=== PATIENT | female | born 1985 | race Caucasian/White ===

== ENCOUNTER 2017-05-06 09:08 | Emergency (ER) | payer OTHER ==
[2017-05-06 09:20] VITALS: BP 149/91; PULSE 84; TEMP 98.4; BMI 39.1
--- NOTE | 2017-05-06 11:07 | PDOC ---
History of Present Illness - General Chief Complaint: Cold Symptoms Stated Complaint: HEADACHE, SORE THROAT Time Seen by Provider: 05/06/17 10:33 History Source: Patient Exam Limitations: No Limitations - History of Present Illness Initial Comments: 05/06/17 11:03 31 yr female with sinus tenderness and congestion left side for 4 days. Pt has nasal discharge yellow thick with left ear pain. no fever or chills no medical history or allergies. Severity: reports: mild Past History - Past Medical History Allergies/Adverse Reactions: Allergies Allergy/AdvReac Type Severity Reaction Status Date / Time No Known Allergies Allergy Verified 05/06/17 09:17 Home Medications: Ambulatory Orders Amoxicillin/Potassium Clav [Augmentin 875-125 Tablet] 1 each PO BID #20 tablet 05/06/17 Fluticasone Prop 0.05% Nasal [Flonase -] 1 - 2 spray NS DAILY #1 spray.pump 11/10 Anemia: No Asthma: No Cancer: No Cardiac Disorders: No CVA: No COPD: No CHF: No Dementia: No Diabetes: No GI Disorders: No Disorders: Yes (KIDNEY STONE) HTN: Yes (border line) Hypercholesterolemia: No Liver Disease: Yes (FATTY LIVER;HEPATO MEGALY) Seizures: No Thyroid Disease: No - Psycho/Social/Smoking Cessation Hx Anxiety: No Suicidal Ideation: No Smoking History: Never smoked Have you smoked in the past 12 months: No Information on smoking cessation initiated: No Hx Alcohol Use: No Drug/Substance Use Hx: No Substance Use Type: None Hx Substance Use Treatment: No *Physical Exam - Vital Signs Last Vital Signs Temp Pulse Resp BP Pulse Ox 98.4 F 84 18 149/91 100 05/06/17 09:18 05/06/17 09:18 05/06/17 09:18 05/06/17 09:18 05/06/17 09:18 - Physical Exam General Appearance: Yes: Nourished, Appropriately Dressed HEENT: positive: EOMI, MARIAM, TMs Normal, Nasal Congestion, Other (tender to left maxilary sinus ) Neck: positive: Supple. negative: Tender Respiratory/Chest: positive: Lungs Clear, Normal Breath Sounds. negative: Chest Tender Cardiovascular: positive: Regular Rhythm, Regular Rate Gastrointestinal/Abdominal: positive: Normal Bowel Sounds, Soft Musculoskeletal: positive: Normal Inspection Extremity: positive: Normal Capillary Refill, Normal Inspection, Normal Range of Motion Integumentary: positive: Normal Color, Dry, Warm Neurologic: positive: Fully Oriented, Alert, Normal Mood/Affect, Normal Response , Motor Strength 5/5 Medical Decision Making - Medical Decision Making 05/06/17 11:04 cc: sinus headache tenderness nasal drainage non toxic no fever will treat for acute sinusitus pt agrees with plan all questions asked and answered at discharge. 05/06/17 11:25 *DC/Admit/Observation/Transfer Diagnosis at time of Disposition: Sinusitis Qualifiers: Sinusitis location: maxillary Chronicity: acute Recurrence: non-recurrent Qualified Code(s): J01.00 - Acute maxillary sinusitis, unspecified - Discharge Dispostion Disposition: HOME Condition at time of disposition: Good - Prescriptions Prescriptions: Amoxicillin/Potassium Clav [Augmentin 875-125 Tablet] 1 each PO BID #20 tablet Fluticasone Prop 0.05% Nasal [Flonase -] 1 - 2 spray NS DAILY #1 spray.pump - Referrals Referrals: Daniel Champagne MD [Primary Care Provider] - Aj Abebe MD [Staff Physician] - - Patient Instructions Additional Instructions: take the antibioitcs Augmentin as directed use the nasal spray as directed continue to take advil for pain and headache cool compresses to the face can help with pain follow with ENT if symptoms worsen or do not improve
== END 2017-05-06 11:37 | disposition home or self-care (01) ==
LOC: JERFT 09:08
DX: J01.00 Acute maxillary sinusitis, unspecified (principal); Z87.442 Personal history of urinary calculi; K76.0 Fatty (change of) liver, not elsewhere classified
CPT/HCPCS: 99281-25

== ENCOUNTER 2017-12-22 17:40 | Emergency (ER) | payer OTHER ==
[2017-12-22 17:53] VITALS: BP 137/75; PULSE 98; TEMP 97.2; BMI 38.7
--- NOTE | 2017-12-22 19:46 | PDOC ---
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 Today, the patient was driving and noticed sudden onset shortness of breath and LUE pain w/ associated numbness radiating down the L arm. SHe denied CP during the episode, no prior episodes, was not exerting herselt, was not anxious at the time. The pain is mostly in the suprascapular region, with associated numbness down L arm. In retrospect she also has noted a couple weeks of intermittent L sided headache/fullness w/ associated eye and ear pain. These headaches happen several times a day, only on L side, at times worse in morning, worse w/ bending down. Denies other focal neurological symptoms Past History - Past Medical History Allergies/Adverse Reactions: Allergies Allergy/AdvReac Type Severity Reaction Status Date / Time No Known Allergies Allergy Verified 12/22/17 17:53 Home Medications: Ambulatory Orders Dicyclomine HCl [Bentyl -] 10 mg PO TID 12/22/17 Ibuprofen [Motrin -] 600 mg PO TID PRN #21 tablet 12/22/17 Ursodiol 500 mg PO TID 12/22/17 Anemia: No Asthma: No Cancer: No Cardiac Disorders: No CVA: No COPD: No CHF: No Dementia: No Diabetes: No GI Disorders: No Disorders: Yes (KIDNEY STONE) HTN: Yes (meds started 12/19/17) Hypercholesterolemia: No Liver Disease: Yes (FATTY LIVER;HEPATO MEGALY) Seizures: No Thyroid Disease: No - Suicide/Smoking/Psychosocial Hx Smoking History: Never smoked Have you smoked in the past 12 months: No Hx Alcohol Use: No Drug/Substance Use Hx: No Substance Use Type: None Hx Substance Use Treatment: No *Physical Exam - Vital Signs Last Vital Signs Temp Pulse Resp BP Pulse Ox 97.2 F L 98 H 18 137/75 100 12/22/17 17:48 12/22/17 17:48 12/22/17 17:48 12/22/17 17:48 12/22/17 17:48 - Physical Exam Comments: GEN: AAOx3, NAD, Lying comfortably HEENT: PERRLA, EOMi, Tympanic membranes intact, no cervical LAD CV: S1, S2, RRR LUNG: CTABL ABD: Obese, soft, NT, ND MSK: 5/5 strength, no sensation deficits NEURO: Full head to toe neuro exam shows no deficits. CN 2-12 intact ED Treatment Course - LABORATORY CBC & Chemistry Diagram: 12/22/17 19:50 12/22/17 19:50 - RADIOLOGY Radiology Studies Ordered: Category Date Time Status HEAD CT WITHOUT CONTRAST [CT] Stat CT Scan 12/22/17 19:35 Ordered CHEST PA & LAT [RAD] Stat Radiology 12/22/17 19:35 Ordered Medical Decision Making - Medical Decision Making 32yo obese F with PMHx of PBC presents with an episode of SOB with residual LUE numbness. In retrospect has had episodes of L sided headaches, eye pain, ear pain.The episode of SOB and LUE numbness could be unrelated or related to the headaches. DDx: Atypical ACS, Cluster headache, sinus headache, idiopathic intracranial hypertension, intracranial mass -- CBC, CMP -- Cardiac profile, EKG -- Urine -- CXR and CT HEad -- Sumatriptan SQ for now, will assess for relief 12/22/17 21:31 Cardiac profile, EKG, CXR all wnl. Still endorses headache after triptan, unlikely migraine or cluster. Head CT normal but has incidental maxillary sinus congestion on opposite side. Will try motrin. If headache improves, will consider sinus headache and dispo home. *DC/Admit/Observation/Transfer Diagnosis at time of Disposition: Sinus headache - Discharge Dispostion Disposition: HOME Admit: No - Prescriptions Prescriptions: Ibuprofen [Motrin -] 600 mg PO TID PRN #21 tablet PRN Reason: Headache - Referrals Referrals: Daniel Champagne MD [Primary Care Provider] - 1 week - Patient Instructions Printed Discharge Instructions: DI for Sinus Headache - Post Discharge Activity
[2017-12-22] MEDS ORDERED: SUMATRIPTAN SUCCINATE 6 MG/0.5 ML VIAL SQ ONE (19:55)
[2017-12-22 19:57] LABS: BASO % 0.6 % (0-2.0); EOS % 1.9 % (0-4.5); HEMATOCRIT 40.2 % (32.4-45.2); HEMOGLOBIN 13.5 GM/dL (10.7-15.3); LYMPH % 37.3 % (8-40); MCH 30.3 pg (25.7-33.7); MCHC 33.5 g/dl (32.0-36.0); MEAN CELL VOLUME 90.4 fl (80-96); MEAN PLT VOLUME 10.1 fl (7.5-11.1); NEUT % 55.2 % (42.8-82.8); PLATELET COUNT 176 K/MM3 (134-434); RBC 4.45 M/mm3 (3.60-5.2); RDW 13.4 % (11.6-15.6); WHITE BLOOD COUNT 9.6 K/mm3 (4.0-10.0)
[2017-12-22] MEDS ORDERED: SUMATRIPTAN SUCCINATE 6 MG/0.5 ML VIAL ONE (20:02)
[2017-12-22 20:20] LABS: ANION GAP 7 (8-16); BILIRUBIN,TOTAL 0.5 mg/dL (0.2-1.0); BLOOD UREA NITROGEN 10 mg/dL (7-18); CALCIUM 9.1 mg/dL (8.5-10.1); CHLORIDE 105 mmol/L (98-107); CO2 28 mmol/L (21-32); CREATININE 0.7 mg/dL (0.55-1.02); GLUCOSE,RANDOM 85 mg/dL (74-106); POTASSIUM 3.8 mmol/L (3.5-5.1); SGOT/AST 15 U/L (15-37); SGPT/ALT 27 U/L (12-78); SODIUM 140 mmol/L (136-145); TOT PROT 7.7 g/dl (6.4-8.2)
[2017-12-22 20:23] LABS: ALK PHOS 59 U/L (45-117)
--- NOTE | 2017-12-22 20:55 | PDOC ---
Attending Attestation - Resident Resident Name: Umair Fitzgerald - ED Attending Attestation I have performed the following: I have examined & evaluated the patient, The case was reviewed & discussed with the resident, I agree w/resident's findings & plan - HPI HPI: 12/22/17 20:53 Pt comes with head ache CP HTN morbid obesity. Multiple complaints. Vitals normal, and pt appears well. - Physicial Exam PE: 12/22/17 20:54 Agree with exam of resident - Medical Decision Making 12/22/17 20:54 Labs are normal CXR pending Head CT normal; pt has a nodule in the right maxillary sinus. Pt will be reassessed after treatment in the ER. 12/22/17 22:10 Patient Name: RUSTY MAYERS THIS IS A PRELIMINARY REPORT FROM [facility] DATE OF SERVICE: 2017-12-22 20:29:52 IMAGES: 139 EXAM: CT HEAD WITHOUT IV CONTRAST TECHNIQUE: Axial images from the skull base to the vertex. Bone and soft tissue windows were reviewed.Multi-planar reconstructions from the axial data set: Yes REASON FOR EXAM: Headache COMPARISON: None. FINDINGS: The brain parenchymal architecture appears normal, with preservation of the friedman -white differentiation. There is no acute intracranial hemorrhage, mass effect or midline shift. No abnormal intra-axial or extra-axial fluid collection is seen. The periventricular white matter is unremarkable. The ventricles and basilar cisterns are maintained. The bones of the calvarium and imaged skull base demonstrate no acute abnormality. The imaged paranasal sinuses and mastoid air cells : remarkable for: Right maxillary mucous retention cyst or polyp. IMPRESSION: Non acute THIS DOCUMENT HAS BEEN ELECTRONICALLY SIGNED
[2017-12-22] MEDS ORDERED: IBUPROFEN 600 MG TABLET (FP) PO ONE ×2 (21:23→21:30)
--- NOTE | 2017-12-23 13:03 | EKG ---
Test Reason : Blood Pressure : / mmHG Vent. Rate : 076 BPM Atrial Rate : 076 BPM P-R Int : 186 ms QRS Dur : 098 ms QT Int : 392 ms P-R-T Axes : 052 021 029 degrees QTc Int : 441 ms NORMAL SINUS RHYTHM WITH SINUS ARRHYTHMIA NORMAL ECG WHEN COMPARED WITH ECG OF 09-AUG-2016 15:55, NO SIGNIFICANT CHANGE WAS FOUND Confirmed by ERMA CHILDS MD ([id number]) on 12/23/2017 1:02:48 PM Referred By: Confirmed By:ERMA CHILDS MD
== END 2017-12-22 22:49 | disposition home or self-care (01) ==
LOC: JER 17:40
PROC: 3E013GC Introduction of Other Therapeutic Substance into Subcutaneous Tissue, Percutaneous Approach (ICD-10-PCS; principal; 2017-12-22)
DX: J01.00 Acute maxillary sinusitis, unspecified (principal)
CPT/HCPCS: 36415; 70450-TC; 71046-TC; 80053; 82550; 84484; 84703; 85025; 93005; 93010; 96372; 99282-25

== ENCOUNTER 2018-07-18 11:52 | Inpatient (IN) | payer OTHER ==
--- NOTE | 2018-07-18 14:00 | HP ---
Past Medical History - Primary Care Physician PCP:: Lupe Gray - Admission Chief Complaint: Oligohydramios. IUP at 32.4 by dates by usg. pt sent in by [facility] for NST due to ULICES 4 History of Present Illness: 33 yo EDC 12/09/17 EGA 32.4 week with hx of Chronic HTN, liver fibrosis & obesity admited due to ULICES of 4 seen today by [facility] and will give steriods and antibiotics admit reevaluate on saturday. Pt with Hx of possible PPOM a few days ago History Source: Patient - Past Medical History Cardiovascular: Yes: HTN Gastrointestinal: Yes: Other (Liver fibrosis) ...: 2 ...Para: 1 ...Term: 1 ...LMP: 11/20/17 ... Weeks Gestation by Dates: 34.2 ...EDC by Dates: 08/27/18 ...EDC by Sono: 09/08/18 - Past Surgical History Past Surgical History: Yes: None Hx Myomectomy: No Hx Transabdominal Cerclage: No - Smoking History Smoking history: Never smoked Have you smoked in the past 12 months: No - Alcohol/Substance Use Hx Alcohol Use: No History of Substance Use: reports: None - Social History Usual Living Arrangement: Yes: With Spouse History of Recent Travel: No Home Medications - Allergies Allergies/Adverse Reactions: Allergies Allergy/AdvReac Type Severity Reaction Status Date / Time No Known Allergies Allergy Verified 12/22/17 17:53 - Home Medications Home Medications: Ambulatory Orders Dicyclomine HCl [Bentyl -] 10 mg PO TID 12/22/17 Ibuprofen [Motrin -] 600 mg PO TID PRN #21 tablet 12/22/17 Ursodiol 500 mg PO TID 12/22/17 Review of Systems - Review of Systems Constitutional: reports: No Symptoms Eyes: reports: No Symptoms HENT: reports: No Symptoms Neck: reports: No Symptoms Cardiovascular: reports: No Symptoms Respiratory: reports: No Symptoms Gastrointestinal: reports: No Symptoms Genitourinary: reports: No Symptoms Breasts: reports: No Symptoms Reported Musculoskeletal: reports: No Symptoms Integumentary: reports: No Symptoms Neurological: reports: No Symptoms Endocrine: reports: No Symptoms Hematology/Lymphatic: reports: No Symptoms Psychiatric: reports: No Symptoms Physical Exam - Maternity Constitutional: Yes: Well Nourished, Obese Neck: Yes: WNL Cardiovascular: Yes: WNL, Regular Rate and Rhythm Lungs: Clear to auscultation Breast(s): Yes: WNL - Abdominal Exam/OB Fundal Height: 32 Number of Fetuses: Single Presentation: Vertex Contractions: No Category: I Decelerations: None - Vaginal Exam/OB Speculum Exam: Yes Dilatation (cm): closed Effacement (%): long Nitrazine Test: Negative Presentation: Vertex/Position - Physical Exam Musculoskeletal: Yes: WNL Extremities: Yes: WNL Edema: No Psychiatric: Yes: WNL, Alert, Oriented Hemorrhage Risk Assessment - Risk Factors Risk Score: 1 Risk Level: Medium Risk Problem List - Problems (1) Oligohydramnios antepartum Code(s): O41.00X0 - OLIGOHYDRAMNIOS, UNSP TRIMESTER, NOT APPLICABLE OR UNSP Assessment/Plan IUP at 32.6 weeks by dates OLigo r/o PPROM - nitro neg Plan admit to LD steroids antibiotics daily NSTs repeat Usg on Saturday Deliver at 34 weekd if stable at 4cm Labs Lab Results: CBC, BMP 07/18/18 14:38 07/18/18 14:38
[2018-07-18] MEDS ORDERED: BETAMET ACET/BETAMET NA PH 30 MG/5 ML VIAL IM ONE (14:08)
[2018-07-18] MEDS: ELECTROLYTE-148 SOLN 1,000 ML IV SCH ×2 (15:10→22:26)
[2018-07-18 15:14] LABS: INR 0.99 (0.83-1.09); PROTHROMBIN TIME (PATIENT) 11.2 SEC (9.7-13.0)
[2018-07-18 15:17] LABS: ACTIVATED PTT 25.9 SECONDS (25.2-36.5)
[2018-07-18 15:27] LABS: ANION GAP 7 MMOL/L (8-16); BLOOD UREA NITROGEN 7 mg/dL (7-18); CALCIUM 8.8 mg/dL (8.5-10.1); CHLORIDE 106 mmol/L (98-107); CO2 27 mmol/L (21-32); CREATININE 0.4 mg/dL (0.55-1.02); GLUCOSE,RANDOM 88 mg/dL (74-106); POTASSIUM 3.7 mmol/L (3.5-5.1); SODIUM 140 mmol/L (136-145)
[2018-07-18 15:28] LABS: BASO % 0.1 % (0-2.0); EOS % 1.1 % (0-4.5); HEMATOCRIT 34.8 % (32.4-45.2); HEMOGLOBIN 11.9 GM/dL (10.7-15.3); LYMPH % 27.9 % (8-40); MCH 30.8 pg (25.7-33.7); MCHC 34.2 g/dl (32.0-36.0); MEAN PLT VOLUME 10.2 fl (7.5-11.1); MONO % 5.6 % (3.8-10.2); NEUT % 65.3 % (42.8-82.8); PLATELET COUNT 153 K/MM3 (134-434); RBC 3.87 M/mm3 (3.60-5.2); RDW 14.4 % (11.6-15.6); WHITE BLOOD COUNT 6.9 K/mm3 (4.0-10.0)
[2018-07-18] MEDS ORDERED: AMPICILLIN SODIUM 2 GM VIAL ONE ×2 (15:29→21:14)
[2018-07-18] MEDS: AMPICILLIN - 2 GM in SODIUM CHLORIDE 100 ML IVPB SCH ×2 (15:35→21:33)
[2018-07-19] MEDS: AMPICILLIN - 2 GM in SODIUM CHLORIDE 100 ML IVPB SCH ×2 (02:34→09:37)
[2018-07-19 08:46] LABS: BASO % 0.1 % (0-2.0); EOS % 0.1 % (0-4.5); HEMATOCRIT 32.7 % (32.4-45.2); HEMOGLOBIN 10.9 GM/dL (10.7-15.3); LYMPH % 16.3 % (8-40); MCH 30.3 pg (25.7-33.7); MCHC 33.5 g/dl (32.0-36.0); MEAN CELL VOLUME 90.5 fl (80-96); MEAN PLT VOLUME 10.1 fl (7.5-11.1); MONO % 4.1 % (3.8-10.2); NEUT % 79.4 % (42.8-82.8); PLATELET COUNT 137 K/MM3 (134-434); RBC 3.61 M/mm3 (3.60-5.2); RDW 14.2 % (11.6-15.6); WHITE BLOOD COUNT 8.8 K/mm3 (4.0-10.0)
--- NOTE | 2018-07-19 08:56 | PN ---
Ante-Partal Exam - Subjective Subjective: Pt doing well Vital Signs: Vital Signs Temperature 98.2 F 07/19/18 08:35 Pulse Rate 87 07/19/18 08:35 Respiratory Rate 20 07/19/18 08:35 Blood Pressure 123/79 07/19/18 08:35 O2 Sat by Pulse Oximetry (%) - Contractions Contractions: No - Exam during Labor Category: I Monitor Decelerations: None Presentation: Vertex - Intrapartum Hemorrhage Risk Risk Score: 0 Risk Level: Low Risk - Assessment/Plan Assessment/Plan: IUP at 32.5 weeks OLIgo ?PPROM nitrazine neg Cat 1 Plan continue observe azithromycin 250 after amp deliver at 34 week BPP on Saturday
[2018-07-19] MEDS ORDERED: AMPICILLIN SODIUM 2 GM VIAL ONE (09:26)
[2018-07-19] MEDS: DOCUSATE SODIUM 100 MG CAPSULE (FP) PO SCH ×2 (09:37→21:25)
[2018-07-19] MEDS ORDERED: BETAMET ACET/BETAMET NA PH 30 MG/5 ML VIAL IM ONE (14:00)
[2018-07-19] MEDS: AZITHROMYCIN 250 MG TABLET PO SCH (14:27)
[2018-07-19] MEDS: ELECTROLYTE-148 SOLN 1,000 ML IV SCH (21:17)
[2018-07-20 06:39] LABS: HBsAG SCREEN Negative (Negative)
[2018-07-20] MEDS: DOCUSATE SODIUM 100 MG CAPSULE (FP) PO SCH ×2 (09:53→21:19)
[2018-07-20] MEDS: AZITHROMYCIN 250 MG TABLET PO SCH (14:04)
[2018-07-20] MEDS: ELECTROLYTE-148 SOLN 1,000 ML IV SCH (21:18)
[2018-07-21 08:53] LABS: BASO % 0.4 % (0-2.0); EOS % 0.5 % (0-4.5); HEMATOCRIT 35.5 % (32.4-45.2); HEMOGLOBIN 11.7 GM/dL (10.7-15.3); LYMPH % 26.7 % (8-40); MCH 29.8 pg (25.7-33.7); MCHC 32.9 g/dl (32.0-36.0); MEAN CELL VOLUME 90.4 fl (80-96); MEAN PLT VOLUME 9.5 fl (7.5-11.1); MONO % 3.8 % (3.8-10.2); NEUT % 68.6 % (42.8-82.8); PLATELET COUNT 153 K/MM3 (134-434); RBC 3.93 M/mm3 (3.60-5.2); RDW 14.8 % (11.6-15.6); WHITE BLOOD COUNT 9.9 K/mm3 (4.0-10.0)
--- NOTE | 2018-07-21 09:46 | PN ---
Progress Note (SOAP) - Subjective Chief Complaint: Pt doing well sp BPP awaiting results - Current Medications Current Medications: Active Medications Azithromycin (Zithromax -) 250 mg PO DAILY@1400 [facility] Last Admin: 07/20/18 14:04 Dose: 250 mg Docusate Sodium (Colace -) 100 mg PO BID [facility] Last Admin: 07/20/18 21:19 Dose: 100 mg Parenteral Electrolytes (Plasma-Lyte 148 -) 1,000 mls @ 125 mls/hr IV ASDIR [facility] Last Admin: 07/20/18 21:18 Dose: Not Given - Objective Vital Signs: Vital Signs Temperature 98.1 F 07/21/18 09:00 Pulse Rate 85 07/21/18 09:00 Respiratory Rate 18 07/21/18 09:00 Blood Pressure 117/59 07/21/18 09:00 O2 Sat by Pulse Oximetry (%) Constitutional: Yes: Well Nourished, No Distress Cardiovascular: Yes: WNL, Regular Rate and Rhythm Respiratory: Yes: WNL Gastrointestinal: Yes: WNL Breast(s): Yes: WNL Musculoskeletal: Yes: WNL Extremities: Yes: WNL Peripheral Pulses WNL: No Edema: No Labs Lab Results: CBC, BMP 07/21/18 08:45 07/18/18 14:38 Problem List - Problems (1) Oligohydramnios antepartum Code(s): O41.00X0 - OLIGOHYDRAMNIOS, UNSP TRIMESTER, NOT APPLICABLE OR UNSP Assessment/Plan IUP at 33.1 weeks by dates OLigo r/o PPROM - nitro neg Plan DC home if stable or if ULICES improved deliver if worse
[2018-07-21] MEDS ORDERED: FLUCONAZOLE 150 MG TABLET PO ONE (10:00)
[2018-07-21] MEDS: DOCUSATE SODIUM 100 MG CAPSULE (FP) PO SCH (10:14)
[2018-07-21] MEDS: AZITHROMYCIN 250 MG TABLET PO SCH (14:07)
[2018-07-21 18:03] VITALS: BP 120/75; PULSE 88; TEMP 98.1
[2018-07-22 00:12] LABS: RUBELLA ANTIBODY,IGM <20.0 AU/mL (0.0-19.9); RUBELLA IgG ANTIBODY 6.12 index (Immune >0.99)
== END 2018-07-21 18:40 | disposition home or self-care (01) | DRG 566 ==
LOC: JDEL 11:52 → JLDR 14:03 → J3W 22:30
PROVIDERS: ADMIT Obstetrics & Gynecology; ATTEND Obstetrics & Gynecology
DX: O41.03X0 Oligohydramnios, third trimester, not applicable or unspecified (principal); Z3A.33 33 weeks gestation of pregnancy
CPT/HCPCS: 36415; 76819-TC; 80048; 85025; 85610; 85730; 86593; 86762; 86850; 86900; 86901; 87070; 87077; 87081; 87205; 87340; 96372

== ENCOUNTER 2018-08-30 16:50 | Inpatient (IN) | payer OTHER ==
[2018-08-30] MEDS ORDERED: AMPICILLIN - 2 GM in SODIUM CHLORIDE 100 ML IVPB ONE (17:30)
[2018-08-30] MEDS ORDERED: OXYTOCIN 20 UNITS in 0.9% NS 20 UNIT/1,000 ML INFUS.BAG IV ONE (18:04)
[2018-08-30] MEDS: OXYTOCIN 20 UNITS in 0.9% NS 20 UNIT/1,000 ML INFUS.BAG IV SCH ×2 (18:15→22:08)
--- NOTE | 2018-08-30 18:23 | HP ---
Past Medical History - Admission Chief Complaint: Labor, contractions, ROM History of Present Illness: Contractions starting at 1545, ROM once arrived to hospital. Pt with before I entered the room at 1805. History Source: Patient, Medical Record - Past Medical History Cardiovascular: Yes: HTN (chronic, no meds) Gastrointestinal: Yes: Other (liver fibrosis, on ursodiol, followed with MFM throughout ) Infectious Disease: No: HIV, MRSA, STD's Psych: No: Anxiety, Bipolar, Depression - Past Surgical History Past Surgical History: Yes: None Hx Myomectomy: No Hx Transabdominal Cerclage: No - Smoking History Smoking history: Never smoked Have you smoked in the past 12 months: No - Alcohol/Substance Use Hx Alcohol Use: No History of Substance Use: reports: None - Social History History of Recent Travel: No Home Medications - Allergies Allergies/Adverse Reactions: Allergies Allergy/AdvReac Type Severity Reaction Status Date / Time No Known Allergies Allergy Verified 08/29/18 11:04 - Home Medications Home Medications: Ambulatory Orders Ursodiol 500 mg PO TID 12/22/17 Pnv No.95/Ferrous Fum/Folic AC [ Vitamin Tablet] 1 each PO DAILY Review of Systems - Review of Systems Constitutional: reports: No Symptoms Cardiovascular: reports: No Symptoms Respiratory: reports: No Symptoms Gastrointestinal: reports: No Symptoms Genitourinary: reports: Vaginal Bleeding (s/p normal ) Breasts: reports: No Symptoms Reported Psychiatric: reports: No Symptoms Physical Exam - Maternity Constitutional: Yes: Well Nourished, No Distress, Calm Eyes: Yes: Conjunctiva Clear, EOM Intact HENT: Yes: Atraumatic, Normocephalic Neck: Yes: Supple Cardiovascular: Yes: Regular Rate and Rhythm Lungs: Clear to auscultation - Abdominal Exam/OB Contractions: No - Vaginal Exam/OB Vaginal Bleediing: Yes (s/p normal ) - Physical Exam Extremities: Yes: WNL Psychiatric: Yes: Alert, Oriented Hemorrhage Risk Assessment - Risk Factors Medium Risk Factors: Yes: None High Risk Factors: Yes: None Risk Score: 1 Risk Level: Medium Risk Problem List - Problems (1) Liver fibrosis Code(s): K74.0 - HEPATIC FIBROSIS (2) Hypertension affecting Code(s): O16.9 - UNSPECIFIED MATERNAL HYPERTENSION, UNSPECIFIED TRIMESTER Assessment/Plan 33 y/o s/p normal upon my arrival to room Apgars 08/03, baby doing well upon my arrival placenta delivered without difficulty, spontaneous and in tact, 3VC pitocin regular diet routine post care
[2018-08-30] MEDS ORDERED: IBUPROFEN 600 MG TABLET (FP) PO PRN (18:24)
[2018-08-30] MEDS ORDERED: METHYLERGONOVINE MALEATE 0.2 MG/1 ML AMP IM PRN (18:24)
[2018-08-30] MEDS ORDERED: BENZOCAINE 20% 57 GM BOTTLE TP PRN (18:24)
[2018-08-30] MEDS ORDERED: ACETAMINOPHEN 325 MG TABLET (FP) PO PRN (18:24)
[2018-08-30] MEDS ORDERED: WITCH HAZEL 50% (TUCKS) 40 PAD/JAR PAD TP PRN (18:24)
[2018-08-30] MEDS ORDERED: BENZOCAINE 28 GM HEMORRHOIDAL OINTMENT TP PRN (18:24)
[2018-08-30] MEDS ORDERED: BISACODYL 10 MG SUPP.RECT RC PRN (18:24)
--- NOTE | 2018-08-30 18:25 | PN ---
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
[2018-08-30 18:30] VITALS: BMI 39.7
[2018-08-30] MEDS ORDERED: TUBERCULIN PPD 5 TU/0.1ML SYRINGE (IN PATIENT USE ONLY) ID ONE ×2 (18:34→18:45)
[2018-08-30 19:10] LABS: EOS % 0.1 % (0-4.5); HEMATOCRIT 36.8 % (32.4-45.2); HEMOGLOBIN 12.4 GM/dL (10.7-15.3); LYMPH % 7.3 % (8-40); MCH 30.4 pg (25.7-33.7); MCHC 33.6 g/dl (32.0-36.0); MEAN CELL VOLUME 90.4 fl (80-96); MEAN PLT VOLUME 10.8 fl (7.5-11.1); MONO % 3.8 % (3.8-10.2); NEUT % 88.8 % (42.8-82.8); PLATELET COUNT 163 K/MM3 (134-434); RBC 4.07 M/mm3 (3.60-5.2); WHITE BLOOD COUNT 10.9 K/mm3 (4.0-10.0)
[2018-08-30 19:22] LABS: INR 0.97 (0.83-1.09); PROTHROMBIN TIME (PATIENT) 11.4 SEC (9.7-13.0)
[2018-08-30 19:25] LABS: ACTIVATED PTT 23.4 SECONDS (25.2-36.5)
[2018-08-30 19:40] LABS: ANION GAP 7 MMOL/L (8-16); BLOOD UREA NITROGEN 5 mg/dL (7-18); CHLORIDE 108 mmol/L (98-107); CO2 24 mmol/L (21-32); CREATININE 0.4 mg/dL (0.55-1.3); GLUCOSE,RANDOM 91 mg/dL (74-106); POTASSIUM 4.1 mmol/L (3.5-5.1); SODIUM 139 mmol/L (136-145)
[2018-08-30] MEDS ORDERED: AMPICILLIN - 1 GM in SODIUM CHLORIDE 100 ML IVPB SCH (21:30)
[2018-08-30] MEDS ORDERED: URSODIOL 500 MG PO SCH (22:00)
--- NOTE | 2018-08-31 06:55 | PN ---
Post Progress Note Type of Delivery: Vital Signs: Vital Signs Temperature 98.6 F 08/31/18 05:19 Pulse Rate 82 08/31/18 05:19 Respiratory Rate 18 08/31/18 05:19 Blood Pressure 118/63 08/31/18 05:19 O2 Sat by Pulse Oximetry (%) 99 08/30/18 19:00 Uterus: Yes: Fundus Firm Abdomen/GI: Yes: Abdomen soft Lochia: Yes: Rubra Lochia, amount: Small Extremities: Yes: Calves non-tender Perineum: Yes: Intact Activity: Ambulating - Labs Labs: CBC WBC 10.9 K/mm3 (4.0-10.0) H 08/30/18 18:55 RBC 4.07 M/mm3 (3.60-5.2) 08/30/18 18:55 Hgb 12.4 GM/dL (10.7-15.3) 08/30/18 18:55 Hct 36.8 % (32.4-45.2) 08/30/18 18:55 MCV 90.4 fl (80-96) 08/30/18 18:55 MCH 30.4 pg (25.7-33.7) 08/30/18 18:55 MCHC 33.6 g/dl (32.0-36.0) 08/30/18 18:55 RDW 15.0 % (11.6-15.6) 08/30/18 18:55 Plt Count 163 K/MM3 (134-434) 08/30/18 18:55 MPV 10.8 fl (7.5-11.1) D 08/30/18 18:55 Absolute Neuts (auto) 9.7 K/mm3 (1.5-8.0) H 08/30/18 18:55 Neutrophils % 88.8 % (42.8-82.8) H D 08/30/18 18:55 Lymphocytes % 7.3 % (8-40) L D 08/30/18 18:55 Monocytes % 3.8 % (3.8-10.2) 08/30/18 18:55 Eosinophils % 0.1 % (0-4.5) 08/30/18 18:55 Basophils % 0.0 % (0-2.0) 08/30/18 18:55 Nucleated RBC % 0 % (0-0) 08/30/18 18:55 Problem List - Problems (1) Liver fibrosis Code(s): K74.0 - HEPATIC FIBROSIS (2) Hypertension affecting Code(s): O16.9 - UNSPECIFIED MATERNAL HYPERTENSION, UNSPECIFIED TRIMESTER (3) Vaginal delivery Code(s): O80 - ENCOUNTER FOR FULL-TERM UNCOMPLICATED DELIVERY Assessment/Plan Pt doing well PPD1 s/p normal AFVSS CBC Pending regular diet PO pain meds routine care
[2018-08-31 07:37] LABS: BASO % 0.3 % (0-2.0); EOS % 0.2 % (0-4.5); HEMATOCRIT 35.1 % (32.4-45.2); HEMOGLOBIN 11.4 GM/dL (10.7-15.3); LYMPH % 19.4 % (8-40); MCH 29.6 pg (25.7-33.7); MCHC 32.4 g/dl (32.0-36.0); MEAN CELL VOLUME 91.4 fl (80-96); MEAN PLT VOLUME 10.6 fl (7.5-11.1); MONO % 5.3 % (3.8-10.2); NEUT % 74.8 % (42.8-82.8); PLATELET COUNT 135 K/MM3 (134-434); RBC 3.84 M/mm3 (3.60-5.2); WHITE BLOOD COUNT 11.8 K/mm3 (4.0-10.0)
[2018-08-31] MEDS: FERROUS SO4 325 MG TABLET (FP) PO SCH ×3 (08:32→16:48)
[2018-08-31] MEDS: PRENATAL VITAMINS W/ FOLIC ACID TABLET (FP) PO SCH (09:21)
[2018-08-31] MEDS ORDERED: DIPHTH,PERTUSS(ACELL),TET 0.5 ML DISP.SYRIN IM ONE (10:00)
[2018-08-31] MEDS ORDERED: SENNOSIDES/DOCUSATE COMBO (SENNA PLUS) TABLET (UD) PO PRN (22:00)
[2018-09-01] MEDS: OXYTOCIN 20 UNITS in 0.9% NS 20 UNIT/1,000 ML INFUS.BAG IV SCH (01:53)
[2018-09-01] MEDS: FERROUS SO4 325 MG TABLET (FP) PO SCH ×3 (08:16→17:16)
--- NOTE | 2018-09-01 09:00 | DS ---
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 Vital Signs: Vital Signs Temperature 98.6 F 08/31/18 22:00 Pulse Rate 90 08/31/18 22:00 Respiratory Rate 18 08/31/18 22:00 Blood Pressure 125/74 08/31/18 22:00 O2 Sat by Pulse Oximetry (%) 99 08/30/18 19:00 Constitutional: Yes: Well Nourished, No Distress, Calm Eyes: Yes: Conjunctiva Clear, EOM Intact HENT: Yes: Atraumatic Neck: Yes: Supple Cardiovascular: Yes: Regular Rate and Rhythm Respiratory: Yes: Regular Gastrointestinal: Yes: Normal Bowel Sounds, Soft ....Post : Yes: Uterus firm, Uterus non-tender Wound/Incision: Yes: Clean/Dry, Well Approximated Neurological: Yes: Alert, Oriented Labs: CBC, BMP 08/31/18 06:30 08/30/18 18:55 Delivery - Delivery Vaginal Delivery: No Problems Type of Anesthesia: None Episiotomy/Laceration: None EBL (cc): 300 Delivery, Single - Stages of Labor Date 1st Stage Initiatied: 08/30/18 Time 1st Stage Initiated: 15:00 Date 2nd Stage Initiated: 08/30/18 Time 2nd Stage Initiated: 17:45 Date of Delivery: 08/30/18 Time of Delivery: 18:02 Time Placenta Delivered: 18:15 Placenta: Yes: Spontaneous - Condition of Pediatric Psychologist/Sprayer Automatic Spray Machine Present: No Infant Gender: Female Weight: 7 lb 13 oz Position: Right, OA Total Hours ROM (Hrs/Mins): 45mins - 1 Minute Total Score: 9 5 Minutes Total Score: 9 - [place] Feeding Plan Initial Plan: Elected not to breastfeed exclusively throughout hospitalization Discharge Summary Reason For Visit: LABOR Current Active Problems Hypertension affecting (Acute) Liver fibrosis (Acute) Vaginal delivery (Acute) Procedures: Principal: Normal Condition: Good - Instructions Diet, Activity, Other Instructions: Physical activity Resume your normal everyday activity as tolerated but no heavy lifting or strenuous exercise until seen by your surgeon. You may walk unlimited amounts and climb stairs. You may resume driving the car when you feel safe and comfortable behind the wheel. No sexual activity as instructed. You may shower daily, no soaking in tubs/baths/pools until cleared by your doctor. Diet There are no dietary restrictions. Eat healthy, high-fiber foods. Drink 6 to 8 glasses of liquid each day. This will assist in keeping your bowels regular. Pain management You may take Tylenol or Ibuprofen (for example, Motrin, Advil etc.) as needed for pain. Call MD for any of the following: Severe pain not relieved by medication Fever of 101 or higher Excessive bleeding or drainage on dressing Inability to urinate Referrals: Mirian Sauceda DO [Staff Physician] - Disposition: HOME - Home Medications Comprehensive Discharge Medication List: Ambulatory Orders Ursodiol 500 mg PO TID 12/22/17 Pnv No.95/Ferrous Fum/Folic AC [ Vitamin Tablet] 1 each PO DAILY Ibuprofen [Motrin -] 600 mg PO QID PRN #28 tablet 09/01/18
[2018-09-01] MEDS: PRENATAL VITAMINS W/ FOLIC ACID TABLET (FP) PO SCH (09:27)
[2018-09-01 14:29] VITALS: BP 114/56; PULSE 76; TEMP 98.6
== END 2018-09-01 17:40 | disposition home or self-care (01) | DRG 560 ==
LOC: JDEL 16:50 → JLDR 16:51 → J3W 20:22
PROVIDERS: ADMIT Obstetrics & Gynecology; ATTEND Obstetrics & Gynecology
PROC: 10E0XZZ Delivery of Products of Conception, External Approach (ICD-10-PCS; principal; 2018-08-30)
DX: O16.3 Unspecified maternal hypertension, third trimester (principal); Z3A.40 40 weeks gestation of pregnancy; Z37.0 Single live birth; O26.893 Other specified pregnancy related conditions, third trimester; K74.0 Hepatic fibrosis
CPT/HCPCS: 36415; 59409; 71046-TC-FY; 80048; 85025; 85610; 85730; 86593; 86850; 86900; 86901; 90686; 90715; G0008